=== PATIENT | male | born 1970 | race Caucasian/White ===

== ENCOUNTER 2018-01-03 19:27 | Emergency (ER) | payer BC, OTHER ==
[2018-01-03] MEDS ORDERED: Naproxen 500 MG TAB PO STA (20:13)
[2018-01-03] MEDS ORDERED: Tdap Vaccine 0.5 ml Vial (10-64 yrs) IM ONE ×2 (20:13→20:36)
--- NOTE | 2018-01-03 20:17 | ED PDOC ---
Upper Extremity Pain/Injury Time Seen by Provider: 01/03/18 19:53 Chief Complaint (Nursing): Upper Extremity Problem/Injury Chief Complaint (Provider): Finger pain History Per: Patient History/Exam Limitations: no limitations Onset/Duration Of Symptoms: Days (x2 months) Additional Complaint(s): Frantz Viera, a 47 year old male with no significant past medical history, presents to the ED with right finger pain (3rd) onset x2 months. Patient states he saw his PMD 1 month ago for the same and was prescribed antibiotics (Augmentin) for 10 days, which he completed, and was given bacitracin, which he is still using. 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 He is right hand dominant and has no further medical complaints. Patient notes his symptoms have improved since onset but persist, prompting visit. Denies fever. PMD: Brian Past Medical History Reviewed: Historical Data, Nursing Documentation, Vital Signs Vital Signs: Last Vital Signs Temp 98.9 F 01/03/18 19:49 Pulse 72 01/03/18 19:49 Resp 16 01/03/18 19:49 BP 116/76 01/03/18 19:49 Pulse Ox 99 01/03/18 19:49 - Medical History PMH: Anxiety, Hyperlipidemia - Surgical History Surgical History: No Surg Hx - Family History Family History: States: Unknown Family Hx - Immunization History Hx Tetanus Toxoid Vaccination: No (not UTD) - Home Medications Home Medications: Ambulatory Orders Medication Instructions Recorded Polyethylene Glycol 3350 [Miralax] 17 gm PO DAILY #270 ml 07/14/17 RX: Ibuprofen [Motrin Tab] 800 mg PO Q8 PRN #21 tab 01/03/18 - Allergies Allergies/Adverse Reactions: Allergies Allergy/AdvReac Type Severity Reaction Status Date / Time No Known Allergies Allergy Verified 01/03/18 19:48 Review of Systems ROS Statement: Except As Marked, All Systems Reviewed And Found Negative Musculoskeletal: Positive for: Hand Pain (right finger pain) Physical Exam - Reviewed Nursing Documentation Reviewed: Yes Vital Signs Reviewed: Yes - Physical Exam Comments: GENERAL APPEARANCE: Patient is awake, alert, oriented x 3, in no acute distress. SKIN: Warm, dry; (-) cyanosis. NECK: Supple CHEST AND RESPIRATORY: (-) rales, (-) rhonchi, (-) wheezes; breath sounds equal bilaterally. HEART AND CARDIOVASCULAR: (-) irregularity HAND: (+) Minimal tenderness to distal phalanx of right 3rd digit, (-) swelling, (-) ecchymosis or erythema (-) warmth (-) evidence of cellulitis (+) dry, cracked cuticles with minor skin breaks surrounding the nail margins with (-) drainage (+) full ROM of all digits (+) sensation and capillary refill intact (-) deformity (-) distal neurovascular deficit. Elbow, hand, wrist, and remainder of digits: (-) tenderness. NEURO AND PSYCH: Mental status as above. Gait: steady. Speech: clear. (-) facial asymmetry - ECG O2 Sat by Pulse Oximetry: 99 (RA) Pulse Ox Interpretation: Normal Medical Decision Making Medical Decision Making: Time: 19:50 Initial Impression: finger pain Initial Plan: --Tetanus 0.5 ml IM --Naproxen 500 mg PO --Patient advised to continue bacitracin dressings at home and to wear gloves at work to avoid exposure to irritant chemicals. 2130 On re-evaluation, patient reports improvement of symptoms. On exam, patient remains AAOx3, in no acute distress. Lungs clear to auscultation, cardiac RRR, repeat neuro exam shows no focal findings. Vitals stable. Lab/Diagnostic results d/w the patient in great detail. Diagnosis of acute finger pain, consider contact dermatitis d/w the patient. Based on history, exam and diagnostic results, plan will be for outpatient follow up. Patient instructed to follow-up with pmd / referral provided / the clinic in 1- 2 days without fail. Advised to take medication as prescribed. Return to the emergency room at any time for any new or worsening symptoms. Patient states he fully agrees with and understands discharge instructions. States that he agrees with the plan and disposition. Verbalized and repeated discharge instructions and plan. I have given the patient opportunity to ask any additional questions. Scribe Attestation: Documented by Deysi Kim, acting as a scribe for Steff Harmon PA-C. Provider Scribe Attestation: All medical record entries made by the Scribe were at my direction and personally dictated by me. I have reviewed the chart and agree that the record accurately reflects my personal performance of the history, physical exam, medical decision making, and the department course for this patient. I have also personally directed, reviewed, and agree with the discharge instructions and disposition. Disposition - Clinical Impression Clinical Impression: Finger pain, right - Patient ED Disposition Is Patient to be Admitted: No Counseled Patient/Family Regarding: Studies Performed, Diagnosis, Need For Followup, Rx Given - Disposition Referrals: Rubio Salmon MD [Staff Provider] - Edward Torres [Staff Provider] - Disposition: Routine/Home Disposition Time: 21:30 Condition: IMPROVED Additional Instructions: La atencin mdica de emergencia que recibi hoy se dirigi a shaka sntomas agudos. Si le recetaron algn medicamento, llnelo y tmelo segn las indicaciones. Los sntomas pueden tardar varios javier en resolverse. Regrese al Departamento de Emergencias si shaka sntomas empeoran, no mejoran o si tiene otros problemas. Comunquese con ware mdico dentro de 2 javier para jose nueva evaluacin y irina un seguimiento o llame a gege de los mdicos / clnicas a los que mcghee sido referido y que figuran en el formulario de Informacin de visita al paciente que se incluye en ware paquete de bhupendra. Lleve con usted a ware consulta de seguimiento toda la documentacin que recibi del bhupendra junto con los medicamentos que est tomando. Nuestro tratamiento no puede reemplazar la atencin mdica continua por parte de un proveedor de atencin primaria (PCP) fuera del departamento de emergencias. Prescriptions: RX: Ibuprofen [Motrin Tab] 800 mg PO Q8 PRN #21 tab PRN Reason: Pain, Moderate (4-7) Instructions: Wound Care, Contact Dermatitis (DC) Forms: [facility] (American) Print Language: UPPER SORBIAN - POGracie Present On Arrival: None
[2018-01-03] MEDS ORDERED: Naproxen 500 MG TAB PO ONE (20:37)
[2018-01-04 01:10] VITALS: BP 119/68; PULSE 76; RESP 16; TEMP 98.9; O2SAT 99
== END 2018-01-03 22:29 | disposition home or self-care (01) ==
LOC: H.ER 19:27
DX: M79.644 Pain in right finger(s) (principal); L25.9 Unspecified contact dermatitis, unspecified cause; E78.5 Hyperlipidemia, unspecified; F41.9 Anxiety disorder, unspecified